=== PATIENT | male | born 1995 | race Two or more races ===

== ENCOUNTER 2017-05-30 12:09 | Emergency (ER) | payer BC, OTHER ==
--- NOTE | 2017-05-30 13:59 | RADIOLOGY REPORT (SQ) ---
EXAM DESCRIPTION: L SPINE WHOLE COMPLETED DATE/TIME: 05/30/2017 1:47 pm REASON FOR STUDY: back pain COMPARISON: None. NUMBER OF VIEWS: Five views including obliques. TECHNIQUE: AP, lateral, oblique, and sacral radiographic images acquired of the lumbar spine. LIMITATIONS: None. FINDINGS: MINERALIZATION: Normal. SEGMENTATION: Normal. No transitional anatomy. ALIGNMENT: Normal. VERTEBRAE: Maintained height. No fracture or worrisome bone lesion. DISCS: Preserved height. No significant osteophytes or end plate irregularity. POSTERIOR ELEMENTS: Pedicles and facets are intact. No pars defect or posterior arch defects. HARDWARE: None in the spine. PARASPINAL SOFT TISSUES: Normal. PELVIS: Intact as visualized. No fractures or worrisome bone lesions. SI joints intact. OTHER: No other significant finding. IMPRESSION: NORMAL 5 VIEW LUMBAR SPINE. TECHNICAL DOCUMENTATION: JOB ID: [id number] [employer]- All Rights Reserved
--- NOTE | 2017-05-30 14:04 | ER Document Report ---
ED Neck/Back Problem - General Chief Complaint: Back Pain Stated Complaint: BACK PAIN Time Seen by Provider: 05/30/17 12:48 Notes: Patient is a 22-year-old male presents emergency department complaining of back pain. Patient states he has had symptoms since January gotten worse over the past 2 months. Patient states he is [employer] duty [employer] and he works in [employer] and it is required to do heavy lifting often anywhere from 240 pounds. [place] Mot[place] and Tylenol encouraged to do stretches. Patient states he has not had any imaging done of his back. Denies any urinary/incontinence, saddle anesthesia. Denies any fall or trauma. States pain is predominantly in the right side of his back with radiation into his buttock and thigh. TRAVEL OUTSIDE OF THE [place] IN LAST 30 DAYS: No - Related Data Allergies/Adverse Reactions: No Known Allergies Allergy (Unverified 05/30/17 12:13) Past Medical History - Social History Smoking Status: Unknown if Ever Smoked Cigarette use (# per day): No Chew tobacco use (# tins/day): No Frequency of alcohol use: None Family History: Reviewed & Not Pertinent Renal/ Medical History: Denies: Hx Peritoneal Dialysis Surgical Hx: Negative - Immunizations Hx Diphtheria, Pertussis, Tetanus Vaccination: Yes Review of Systems - Review of Systems Constitutional: No symptoms reported Musculoskeletal: See HPI -: Yes All other systems reviewed and negative Physical Exam - Vital signs Vitals: Temp Pulse Resp BP Pulse Ox 98.4 F 72 16 110/63 98 05/30/17 12:14 05/30/17 12:14 05/30/17 12:14 05/30/17 12:14 05/30/17 12:14 - General General appearance: Appears well, Alert In distress: None - Cardiovascular Pulses: Normal: Radial, Dorsalis pedis Normal capillary refill: Yes - Back Back: Normal, Tender - Right paraspinous muscles., Other - Full range of motion. Gait stable. Able to bear weight without difficulty.. No: Deformity/ step-off, CVA tenderness, Vertebra tenderness, Scars, Scoliosis, Wounds - Extremities General upper extremity: Normal inspection, Nontender, Normal color, Normal ROM , Normal strength, Normal temperature General lower extremity: Normal inspection, Nontender, Normal color, Normal ROM , Normal strength, Normal temperature, Normal weight bearing - Neurological Neuro grossly intact: Yes Cognition: Normal Orientation: AAOx4 [place] Coma Scale Eye Opening: Spontaneous [place] Coma Scale Verbal: Oriented [place] Coma Scale Motor: Obeys Commands Dominic Coma Scale Total: 15 Speech: Normal Cranial nerves: Normal Cerebellar coordination: Normal Motor strength normal: LUE, RUE, LLE, RLE 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 No: Weakness Sensory: Normal - Skin Skin Temperature: Warm Skin Moisture: Dry Skin Color: Normal Skin Turgor: Elastic Course - Re-evaluation Re-evalutation: 05/30/17 15:24 The patient presents with low back pain without signs of spinal cord compression , cauda equina syndrome, infection, aneurysm, or other serious etiology. The patient is neurologically intact. Given the extremely low risk of these diagnoses further testing and evaluation for these possibilities does not appear to be indicated at this time. The patient has been instructed to return if the symptoms worsen or change in any way. - Vital Signs Vital signs: Temp Pulse Resp BP Pulse Ox 98.4 F 62 16 112/68 99 05/30/17 12:14 05/30/17 14:18 05/30/17 12:14 05/30/17 14:18 05/30/17 14:18 - Diagnostic Test Radiology reviewed: Image reviewed, Reports reviewed Discharge - Discharge Clinical Impression: Low back pain Qualifiers: Chronicity: unspecified Back pain laterality: right Sciatica presence: with sciatica Sciatica laterality: sciatica of right side Qualified Code(s): M54.41 - Lumbago with sciatica, right side Condition: Good Disposition: HOME, SELF-CARE Additional Instructions: LOW BACK PAIN: Three out of every four people will have an episode of disabling back pain during their lifetime. Most commonly the pain is due to straining of the muscles and ligaments in the low back. Usual treatment includes: (1) Rest on a firm surface. Avoid lying on your stomach. (2) Ice pack the painful area. After a few days, gentle heat may be used intermittently to relax the area, or ice packs can be continued. (3) Medication may be needed -- muscle relaxers and antiinflammatory medicines are commonly used. (4) As the back improves, exercises are prescribed to strengthen the back and abdominal muscles. Your doctor will advise you on the proper care for your back at each stage in your recovery. You may be better in a few days -- or healing may take several weeks. If new symptoms of a "herniated disc" (radiation of pain, numbness, or tingling down the back of the leg or weakness in the leg) occur, you should be re-examined. Further testing may be necessary. PAIN MEDICATION INJECTION: You have received an injection of a pain medication. You should experience significant pain relief within 45 minutes. If this injection was a narcotic -- it will impair your judgement, slow your reaction time and make you sleepy (as well as relieve your pain). Narcotics also can cause nausea. You should not drive, work with machinery, or perform any task requiring mental alertness until all effects of the medication are gone -- six to eight hours. Do not take any alcohol, or sedatives, and do not take any other medication without checking with your physician. MUSCLE RELAXERS: Muscle relaxing medications are usually prescribed for acute muscle spasm or injury to the neck and back. They are often combined with antiinflammatory pain medication for increased relief. You may stop the muscle relaxer when the pain and stiffness have improved. Start the medication again if spasms recur. Muscle relaxers may cause drowsiness, especially with the first dose. Do not operate machinery or drive while under the effects of the medication. Most muscle relaxers last up to 24 hours. Do not combine the medication with alcohol. ICE PACKS: Apply ice packs frequently against the painful area. Many different schedules are recommended, such as "20 minutes on, 20 minutes off" or "one hour ice, two hours rest." If you need to work, you may need to go longer between ice treatments. You should plan to have the area ice packed AT LEAST one fourth of the time. The ice should be applied over the wrap, tape, or splint, or over a layer of cloth -- not directly against the skin. Some ice bags have a built-in cloth and can be put directly on the skin. WARM PACKS: After approximately two days, apply gentle heat (such as a heating pad or hot water bottle) for about 20 to 30 minutes about every two hours -- at least four times daily. Warmth and elevation will help you make a more rapid recovery , and will ease the pain considerably. Do not use HOT heat, and never apply heat for longer than 30 minutes. The continuous heat can invisibly damage skin and muscles -- even when no burn is seen on the surface. Damaged muscles can make you MORE sore. FOLLOW-UP CARE: If you have been referred to a physician for follow-up care, call the physician s office for an appointment as you were instructed or within the next two days. If you experience worsening or a significant change in your symptoms, notify the physician immediately or return to the Emergency Department at any time for re-evaluation. Prescriptions: Cyclobenzaprine HCl [Flexeril 10 mg Tablet] 10 mg PO TIDP PRN #15 tab PRN Reason: Methylprednisolone [Medrol Dosepack (4 mg/Tab) 21 Tab/Dosepak] 4 mg PO ASDIR PRN #21 tab.ds.pk PRN Reason: Forms: Special Work Note
[2017-05-30] MEDS ORDERED: KETOROLAC TROMETHAMINE INJ/PF 30 MG/1 ML SDV IM ONE (14:05)
[2017-05-30] MEDS ORDERED: CYCLOBENZAPRINE HCL 10 MG TABLET PO ONE (14:05)
[2017-05-30 14:26] VITALS: BP 112/68
== END 2017-05-30 14:25 | disposition home or self-care (01) ==
LOC: ER 12:09
DX: M54.41 Lumbago with sciatica, right side (principal)
CPT/HCPCS: 99283; 96372; 72110; J1885

== ENCOUNTER 2017-06-13 16:09 | Emergency (ER) | payer BC, OTHER ==
[2017-06-13 16:40] VITALS: BP 135/84
--- NOTE | 2017-06-13 17:13 | RADIOLOGY REPORT (SQ) ---
EXAM DESCRIPTION: ANKLE RIGHT COMPLETE COMPLETED DATE/TIME: 06/13/2017 5:01 pm REASON FOR STUDY: pain COMPARISON: None. NUMBER OF VIEWS: Three views. TECHNIQUE: AP, lateral, and oblique radiographic images acquired of the right ankle. LIMITATIONS: None. FINDINGS: MINERALIZATION: Normal. BONES: No acute fracture or dislocation. No worrisome bone lesions. JOINTS: No effusions. SOFT TISSUES: No soft tissue swelling. No foreign body. OTHER: No other significant finding. IMPRESSION: NO RADIOGRAPHIC EVIDENCE OF ACUTE INJURY. TECHNICAL DOCUMENTATION: JOB ID: [id number] [employer] All Rights Reserved
--- NOTE | 2017-06-13 17:19 | RADIOLOGY REPORT (SQ) ---
EXAM DESCRIPTION: FOOT RIGHT COMPLETE COMPLETED DATE/TIME: 06/13/2017 5:01 pm REASON FOR STUDY: pain COMPARISON: None. NUMBER OF VIEWS: Three views. TECHNIQUE: AP, lateral and oblique radiographic images acquired of the right foot. LIMITATIONS: None. FINDINGS: MINERALIZATION: Normal. BONES: No acute fracture or dislocation. No worrisome bone lesions. JOINTS: No effusions. SOFT TISSUES: No soft tissue swelling. No foreign body. OTHER: No other significant finding. IMPRESSION: NO RADIOGRAPHIC EVIDENCE OF ACUTE INJURY. TECHNICAL DOCUMENTATION: JOB ID: [id number] [employer]- All Rights Reserved
[2017-06-13] MEDS ORDERED: IBUPROFEN 800 MG TABLET PO ONE (17:39)
--- NOTE | 2017-06-13 17:39 | ER Document Report ---
ED Extremity Problem, Lower - General Chief Complaint: rt foot pain Stated Complaint: RIGHT FOOT PAIN Time Seen by Provider: 06/13/17 16:31 TRAVEL OUTSIDE OF THE [place] IN LAST 30 DAYS: No - HPI Patient complains to provider of: Pain - right foot pain after running 4 miles two days ago after he was on light duty for 2 weeks Location: Foot - lateral posterior fibula and along his foot along peroneal distribution right foot Occurred: Other - past two days Exacerbated by: Walking - Related Data Allergies/Adverse Reactions: No Known Allergies Allergy (Unverified 05/30/17 12:13) Past Medical History - Social History Smoking Status: Never Smoker Chew tobacco use (# tins/day): No Frequency of alcohol use: Occasional Drug Abuse: None Family History: Reviewed & Not Pertinent Patient has suicidal ideation: No Patient has homicidal ideation: No Renal/ Medical History: Denies: Hx Peritoneal Dialysis Past Surgical History: Reports: Hx Orthopedic Surgery - knee and shoulder - Immunizations Hx Diphtheria, Pertussis, Tetanus Vaccination: Yes Review of Systems - Review of Systems Constitutional: No symptoms reported Musculoskeletal: See HPI -: Yes All other systems reviewed and negative Physical Exam - Vital signs Vitals: Temp Pulse Resp BP Pulse Ox 97.4 F 88 16 135/84 H 97 06/13/17 16:33 06/13/17 16:33 06/13/17 16:33 06/13/17 16:33 06/13/17 16:33 - General General appearance: Appears well, Alert In distress: None - Cardiovascular Pulses: Normal: Posterior tibial, Dorsalis pedis Normal capillary refill: Yes - Extremities General lower extremity: Normal inspection, Tender - along peroneal tendon on right foot, Normal color, Normal ROM, Normal strength, Normal temperature, Normal weight bearing - Skin Skin Temperature: Warm Skin Moisture: Dry Skin Color: Normal Skin Turgor: Elastic Course - Re-evaluation Re-evalutation: 06/13/17 21:30 Patient is a 22-year-old male who is hemodynamically stable, no distress and afebrile. No evidence of fracture dislocation. Presentation is consistent with peroneal tendinitis. Patient educated on on management and can follow-up with primary care. Otherwise patient placed on crutches. - Vital Signs Vital signs: Temp Pulse Resp BP Pulse Ox 97.4 F 88 16 135/84 H 97 06/13/17 16:33 06/13/17 16:33 06/13/17 16:33 06/13/17 16:33 06/13/17 16:33 - Diagnostic Test Radiology reviewed: Image reviewed, Reports reviewed Discharge - Discharge Clinical Impression: Tendonitis Condition: Good Disposition: HOME, SELF-CARE Instructions: Plantar Fasciitis or Heel Spur ([facility]), Tendonitis ([facility]), Use of Crutches ([facility])
== END 2017-06-13 17:58 | disposition home or self-care (01) ==
LOC: ER 16:09
DX: M77.9 Enthesopathy, unspecified (principal); M79.671 Pain in right foot
CPT/HCPCS: 99283

== ENCOUNTER 2020-01-11 11:50 | Emergency (ER) | payer BC, OTHER ==
[2020-01-11 11:55] VITALS: BP 130/73
--- NOTE | 2020-01-11 12:49 | ER Document Report ---
HPI - HPI Patient complains to provider of: Sore throat Time Seen by Provider: 01/11/20 12:41 Onset: Yesterday Onset/Duration: Sudden, Intermittent Quality of pain: Achy, Burning Severity: Moderate Pain Level: 3 Associated Symptoms: Fever Exacerbated by: Denies Relieved by: Denies Similar symptoms previously: Yes - CONSTITUTIONAL Constitutional: REPORTS: Fever. DENIES: Chills Past Medical History - General Information source: Patient - Social History Smoking Status: Never Smoker Cigarette use (# per day): No Chew tobacco use (# tins/day): No Smoking Education Provided: No Frequency of alcohol use: Occasional Drug Abuse: None Family History: Reviewed & Not Pertinent Patient has suicidal ideation: No Patient has homicidal ideation: No Renal/ Medical History: Denies: Hx Peritoneal Dialysis Past Surgical History: Reports: Hx Orthopedic Surgery - knee and shoulder - Immunizations Hx Diphtheria, Pertussis, Tetanus Vaccination: Yes Vertical Provider Document - CONSTITUTIONAL Agree With Documented VS: Yes Exam Limitations: No Limitations - INFECTION CONTROL TRAVEL OUTSIDE OF THE [place] IN LAST 30 DAYS: No - HEENT HEENT: Atraumatic, Normocephalic, PERRLA, Pharyngeal Erythema - NECK Neck: Normal Inspection - RESPIRATORY Respiratory: Breath Sounds Normal - CARDIOVASCULAR Cardiovascular: Regular Rate - GI/ABDOMEN Gastrointestinal: Abdomen Soft - REPRODUCTIVE Male Genitalia: Normal Inspection - BACK Back: Normal Inspection - NEURO Level of Consciousness: Awake, Alert, Appropriate Motor/Sensory: No Motor Deficit Course - Vital Signs Vital signs: Temp Pulse Resp BP Pulse Ox 98.7 F 78 16 130/73 H 98 01/11/20 11:54 01/11/20 11:54 01/11/20 11:54 01/11/20 11:54 01/11/20 11:54 Discharge - Discharge Clinical Impression: Viral pharyngitis Disposition: HOME, SELF-CARE Instructions: Fever ([facility]), Viral Syndrome ([facility]) Prescriptions: Prednisone [Deltasone 20 mg Tablet] 3 tab PO DAILY 5 Days #15 tablet Ibuprofen 200 mg PO 6XD #20 tablet Forms: Return to Work
== END 2020-01-11 12:58 | disposition home or self-care (01) ==
LOC: ER 11:50
DX: J02.8 Acute pharyngitis due to other specified organisms (principal); B97.89 Other viral agents as the cause of diseases classified elsewhere; R50.9 Fever, unspecified
CPT/HCPCS: 99282